=== PATIENT | male | born 1940 | race Caucasian/White ===

== ENCOUNTER 2016-11-06 09:11 | Outpatient (CLI) | payer MEDICARE, OTHER | END 2016-11-06 09:20 | LOC: POD 09:11 | PROVIDERS: ATTEND Podiatrist Public Medicine | DX: B35.1 Tinea unguium (principal); L60.0 Ingrowing nail; M79.674 Pain in right toe(s); M79.675 Pain in left toe(s) | CPT/HCPCS: 11721; G0463 ==

== ENCOUNTER 2017-02-26 08:47 | Outpatient (CLI) | payer MEDICARE, OTHER | END 2017-02-26 08:50 | LOC: POD 08:47 | PROVIDERS: ATTEND Podiatrist Public Medicine | DX: B35.1 Tinea unguium (principal); L60.0 Ingrowing nail; M79.675 Pain in left toe(s); M79.674 Pain in right toe(s); M79.672 Pain in left foot | CPT/HCPCS: 11721; G0463 ==

== ENCOUNTER 2017-05-28 09:04 | Outpatient (CLI) | payer MEDICARE, OTHER | END 2017-05-28 09:05 | LOC: POD 09:04 | PROVIDERS: ATTEND Podiatrist Public Medicine | DX: B35.1 Tinea unguium (principal); L60.0 Ingrowing nail; M79.674 Pain in right toe(s); M79.675 Pain in left toe(s) | CPT/HCPCS: 11721; G0463 ==

== ENCOUNTER 2017-08-27 08:47 | Outpatient (CLI) | payer MEDICARE, OTHER | END 2017-08-27 09:00 | LOC: POD 08:47 | PROVIDERS: ATTEND Podiatrist Public Medicine | DX: M67.472 Ganglion, left ankle and foot (principal); B35.1 Tinea unguium; L60.0 Ingrowing nail; M79.674 Pain in right toe(s); M79.675 Pain in left toe(s) | CPT/HCPCS: 11721; G0463 ==

== ENCOUNTER 2017-11-26 08:59 | Outpatient (CLI) | payer MEDICARE, OTHER | END 2017-11-26 09:00 | LOC: POD 08:59 | PROVIDERS: ATTEND Podiatrist Public Medicine | DX: M67.472 Ganglion, left ankle and foot (principal); B35.1 Tinea unguium; L60.0 Ingrowing nail; M79.674 Pain in right toe(s); M79.675 Pain in left toe(s) | CPT/HCPCS: 11721; G0463 ==

== ENCOUNTER 2018-02-25 09:08 | Outpatient (CLI) | payer MEDICARE, OTHER | END 2018-02-25 09:10 | LOC: POD 09:08 | PROVIDERS: ATTEND Podiatrist Public Medicine | DX: M67.472 Ganglion, left ankle and foot (principal); B35.1 Tinea unguium; L60.0 Ingrowing nail; M79.674 Pain in right toe(s); M79.675 Pain in left toe(s) | CPT/HCPCS: 11721; G0463 ==